=== PATIENT | female | born 1965 | race Native Hawaiian/Other Pacific Islander ===

== ENCOUNTER 2018-08-18 07:06 | Day surgery (SDC) | payer OTHER | END 2018-08-18 09:05 | disposition home or self-care (01) | LOC: OR 07:06 | PROC: 3E0U33Z Introduction of Anti-inflammatory into Joints, Percutaneous Approach (ICD-10-PCS; principal; 2018-08-18) | PROC: 3E0U3BZ Introduction of Anesthetic Agent into Joints, Percutaneous Approach (ICD-10-PCS; 2018-08-18) | DX: M46.1 Sacroiliitis, not elsewhere classified (principal); M53.3 Sacrococcygeal disorders, not elsewhere classified | CPT/HCPCS: J1020; J3490 ==

== ENCOUNTER 2021-09-25 09:47 | Outpatient (CLI) | payer OTHER | END 2021-09-25 18:53 | disposition home or self-care (01) | LOC: RAD 09:47 | PROVIDERS: ATTEND Internal Medicine | DX: Z02.71 Encounter for disability determination (principal); R56.9 Unspecified convulsions; M54.16 Radiculopathy, lumbar region; M48.00 Spinal stenosis, site unspecified; Z98.890 Other specified postprocedural states; G25.81 Restless legs syndrome; F32.A Depression, unspecified ==